=== PATIENT | female | born 1975 | race Hispanic/Latino ===

== ENCOUNTER 2019-06-23 02:07 | Inpatient (IN) | payer SELFPAY ==
[2019-06-23] MEDS ORDERED: NA CHLORIDE 0.9% 1,000 ML ONE (02:59)
[2019-06-23 03:18] LABS: Absolute Lymphocytes (CBC) 1.8 K/uL (0.7-4.9); Basophils % 0.5 % (0-1.3); Hematocrit 36.1 % (36.0-45.0); Lymphocytes % 14.4 % (15.3-44.8); MPV 8.1 fL (7.6-11.3); RBC Red Blood Cell Count 4.05 M/uL (3.86-4.86)
[2019-06-23 03:31] LABS: ALT/SGPT 23 U/L (12-78); AST/SGOT 11 U/L (15-37); Albumin 4.1 g/dL (3.4-5.0); Alkaline Phosphatase 47 U/L (45-117); BUN Blood Urea Nitrogen 11 mg/dL (7-18); Bicarbonate 28 mmol/L (21-32); Bilirubin Direct < 0.1 mg/dL (0-0.2); Bilirubin Total 0.1 mg/dL (0.2-1.0); Glucose Level 146 mg/dL (74-106); Lipase 169 U/L (73-393); Potassium 3.7 mmol/L (3.5-5.1); Protein, Total 7.4 g/dL (6.4-8.2); Sodium Level 140 mmol/L (136-145)
[2019-06-23] MEDS ORDERED: ONDANSETRON 4 MG/2 ML VIAL ONE (03:45)
[2019-06-23] MEDS ORDERED: MORPHINE 4 MG/ML SYR ONE (03:45)
[2019-06-23] MEDS ORDERED: CEFTRIAXONE 1000 MG/VIAL ONE (03:45)
[2019-06-23 04:54] LABS: Urine Culture Reflex Order NOT NEEDED
[2019-06-23 04:55] LABS: Urine Amorphous Sediment 3+ /HPF (NONE SEEN); Urine Urothelial Cells <5 /HPF (NONE SEEN)
[2019-06-23 04:56] LABS: Urine Blood TRACE (NEG); Urine Glucose NEGATIVE (NEG); Urine Protein TRACE (NEG); Urine pH >8.5 (5.0-7.0)
[2019-06-23 04:56] LABS: Urine Bacteria >50 /HPF (<20); Urine RBC <5 /HPF (NONE SEEN)
--- NOTE | 2019-06-23 06:04 | ER ---
Nurse's Notes [facility] Name: Juliane Quezada Age: 44 yrs Sex: Female : 1975 Arrival Date: 06/23/2019 Time: 02:09 Bed 18 Private MD: Diagnosis: Abdominal tenderness;Cholecystitis;Cholelithiasis Presentation: 06/23 03:09 Presenting complaint: Patient states: she is having abdominal pain which started last bb night approx 2230. Transition of care: patient was not received from another setting of care. Onset of symptoms was June 22, 2019. Risk Assessment: Do you want to hurt yourself or someone else? Patient reports no desire to harm self or others. Initial Sepsis Screen: Does the patient meet any 2 criteria? No. Patient's initial sepsis screen is negative. Does the patient have a suspected source of infection? No. Patient's initial sepsis screen is negative. Care prior to arrival: None. 03:09 Method Of Arrival: Ambulatory bb 03:09 Acuity: AISHA 3 bb PROCEDURES TECH: 03:10 LMP 06/12/2019 bb Historical: - Allergies: 03:10 No Known Allergies; bb - Home Meds: 03:10 None [Active]; bb - PMHx: 03:10 None; bb - PSHx: 03:10 Bladder suspension; bb - Immunization history:: Adult Immunizations up to date. - Social history:: Smoking status: Patient/guardian denies using tobacco. - Ebola Screening: : No symptoms or risks identified at this time. - Family history:: not pertinent. Screenin:39 Abuse screen: Denies threats or abuse. Nutritional screening: No deficits noted. lc1 Tuberculosis screening: No symptoms or risk factors identified. Fall Risk None identified. Assessment: 03:29 General: Appears distressed, uncomfortable, Behavior is calm, cooperative. Pain: lc1 Complains of pain in right upper quadrant and anterior aspect of right lateral abdomen and posterior aspect of right lateral abdomen and epigastric area Pain. 04:39 Neuro: No deficits noted. Cardiovascular: No deficits noted. Respiratory: No deficits lc1 noted. GI: Bowel sounds present X 4 quads. Abdomen is tender to palpation. : No signs and/or symptoms were reported regarding the genitourinary system. EENT: No signs and/or symptoms were reported regarding the EENT system. Derm: No signs and/or symptoms reported regarding the dermatologic system. Musculoskeletal: No signs and/or symptoms reported regarding the musculoskeletal system. 05:30 Reassessment: No changes from previously documented assessment. Patient and/or family lc1 updated on plan of care and expected duration. Pain level reassessed. Patient is alert, oriented x 3, equal unlabored respirations, skin warm/dry/pink. Patient states feeling better. 06:30 Reassessment: No changes from previously documented assessment. Patient and/or family lc1 updated on plan of care and expected duration. Pain level reassessed. Patient is alert, oriented x 3, equal unlabored respirations, skin warm/dry/pink. Patient states feeling better. 07:10 Reassessment: Patient appears in no apparent distress at this time. Patient and/or em family updated on plan of care and expected duration. Pain level reassessed. Patient is alert, oriented x 3, equal unlabored respirations, skin warm/dry/pink. Patient denies pain at this time. Patient states feeling better. 07:33 Reassessment: Patient appears in no apparent distress at this time. pt wheeled to MRI em via wheelchair. Vital Signs: 03:10 BP 123 / 71; Pulse 72; Resp 18 S; Temp 98.4(O); Pulse Ox 100% on R/A; Weight 72.57 kg bb (R); Height 5 ft. 4 in. (162.56 cm) (R); Pain 10/10; 04:00 BP 113 / 66; Pulse 70; Resp 18; Pulse Ox 99% on R/A; lc1 04:45 BP 116 / 68; Pulse 69; Resp 18; Pulse Ox 98% on R/A; lc1 05:30 BP 96 / 55; Pulse 76; Resp 18; Pulse Ox 97% on R/A; lc1 06:30 BP 107 / 68; Pulse 70; Resp 18; Pulse Ox 98% on R/A; lc1 03:10 Body Mass Index 27.46 (72.57 kg, 162.56 cm) ED Course: 02:09 Patient arrived in ED. ds1 02:42 Guido Salinas MD is Attending Physician. sheryl 02:50 Initial lab(s) drawn, by me, sent to lab. Inserted saline lock: 20 gauge in right bb antecubital area, using aseptic technique. Blood collected. 03:07 Liv Hoff is Primary Nurse. 1 03:08 Urine collected: clean catch specimen, cloudy. bb 03:09 Triage completed. bb 03:10 Arm band placed on Patient placed in an exam room, on a stretcher, on pulse oximetry. bb Family accompanied patient. 03:39 Chest Single View XRAY In Process Unspecified. EDMS 04:15 CT Abd/Pelvis - IV Contrast Only In Process Unspecified. EDMS 04:39 No apparent distress. Resting quietly. Awaiting radiology results. lc1 04:39 No provider procedures requiring assistance completed. lc1 04:39 Patient has correct armband on for positive identification. Placed in gown. Bed in low lc1 position. Call light in reach. 06:02 Dexter Casillas MD is Hospitalizing Provider. [facility] 06:30 Patient admitted, IV remains in place. lc1 Administered Medications: 03:00 Drug: NS 0.9% 1000 ml Route: IV; Rate: 1 bolus; Site: right antecubital; bb 03:52 Follow up: IV Status: Completed infusion; IV Intake: 1000ml bb 07:02 Follow up: IV Status: Completed infusion lc1 03:51 Drug: morphine 4 mg {Note: RASS 0.} Route: IVP; Site: right antecubital; bb 04:41 Follow up: Response: Pain is decreased; RASS: Alert and Calm (0) lc1 03:51 Drug: Zofran 4 mg Route: IVP; Site: right antecubital; bb 04:41 Follow up: Response: No adverse reaction 1 03:52 Drug: Rocephin 1 grams Route: IV; Rate: per protocol; Site: right antecubital; bb 07:01 Follow up: Response: No adverse reaction; IV Status: Completed infusion lc1 Intake: 03:52 IV: 1000ml; Total: 1000ml. bb Outcome: 06:03 Decision to Hospitalize by Provider. sheryl 08:25 Admitted to Med/surg accompanied by tech, family with patient, room 217, with chart, em Report called to WILLIAM Turner 08:25 Condition: good 08:25 Instructed on the need for admit, Demonstrated understanding of instructions. 08:25 Patient left the ED. em Signatures: Dispatcher [employer] Guido Becerra MD MD cha Munoz Mata, PARTS IDENTIFIER PARTS IDENTIFIER Grecia Muller ds1 Amy العلي RN RN Liv Read lc1 Corrections: (The following items were deleted from the chart) 04:39 03:29 Pain: Complains of pain in right upper quadrant and anterior aspect of right lc1 lateral abdomen and posterior aspect of right lateral abdomen and epigastric area Pain lc1
--- NOTE | 2019-06-23 06:04 | EDPHYS ---
Physician Documentation [facility] Name: Juliane Quezada Age: 44 yrs Sex: Female : 1975 Arrival Date: 06/23/2019 Time: 02:09 Bed 18 Private MD: ED Physician Guido Salinas HPI: 06/23 03:24 This 44 yrs old Female presents to ER via Ambulatory with complaints of sheryl Abdominal Pain. 03:24 The patient presents with abdominal pain in the upper abdomen, in the right upper sheryl quadrant, abdominal distention in the epigastric area. Onset: The symptoms/episode began/occurred 2 day(s) ago. The symptoms radiate to right back. Associated signs and symptoms: none. The symptoms are described as achy, crampy, dull. Modifying factors: The symptoms are alleviated by nothing. Severity of pain: At its worst the pain was moderate in the emergency department the pain is unchanged. The patient has experienced similar episodes in the past, several times. INCLUSION INTERN: 03:10 LMP 06/12/2019 bb Historical: - Allergies: 03:10 No Known Allergies; bb - Home Meds: 03:10 None [Active]; bb - PMHx: 03:10 None; bb - PSHx: 03:10 Bladder suspension; bb - Immunization history:: Adult Immunizations up to date. - Social history:: Smoking status: Patient/guardian denies using tobacco. - Ebola Screening: : No symptoms or risks identified at this time. - Family history:: not pertinent. ROS: 03:24 Constitutional: Negative for fever, chills, and weight loss, Eyes: Negative for injury, sheryl pain, redness, and discharge, ENT: Negative for injury, pain, and discharge, Neck: Negative for injury, pain, and swelling, Cardiovascular: Negative for chest pain, palpitations, and edema, Respiratory: Negative for shortness of breath, cough, wheezing, and pleuritic chest pain, : Negative for injury, bleeding, discharge, and swelling, MS/Extremity: Negative for injury and deformity, Skin: Negative for injury, rash, and discoloration, Neuro: Negative for headache, weakness, numbness, tingling, and seizure, Psych: Negative for depression, anxiety, suicide ideation, homicidal ideation, and hallucinations, Allergy/Immunology: Negative for hives, rash, and allergies, Endocrine: Negative for neck swelling, polydipsia, polyuria, polyphagia, and marked weight changes, Hematologic/Lymphatic: Negative for swollen nodes, abnormal bleeding, and unusual bruising. 03:24 Abdomen/GI: Positive for abdominal pain, nausea, vomiting, and diarrhea, nausea, vomiting, diarrhea, of the epigastric area, posterior aspect of right lateral abdomen, anterior aspect of right lateral abdomen and right upper quadrant. Exam: 03:24 Constitutional: This is a well developed, well nourished patient who is awake, alert, sheryl and in no acute distress. Head/Face: Normocephalic, atraumatic. Eyes: Pupils equal round and reactive to light, extra-ocular motions intact. Lids and lashes normal. Conjunctiva and sclera are non-icteric and not injected. Cornea within normal limits. Periorbital areas with no swelling, redness, or edema. ENT: Nares patent. No nasal discharge, no septal abnormalities noted. Tympanic membranes are normal and external auditory canals are clear. Oropharynx with no redness, swelling, or masses, exudates, or evidence of obstruction, uvula midline. Mucous membranes moist. Neck: Trachea midline, no thyromegaly or masses palpated, and no cervical lymphadenopathy. Supple, full range of motion without nuchal rigidity, or vertebral point tenderness. No Meningismus. Chest/axilla: Normal chest wall appearance and motion. Nontender with no deformity. No lesions are appreciated. Cardiovascular: Regular rate and rhythm with a normal S1 and S2. No gallops, murmurs, or rubs. Normal PMI, no JVD. No pulse deficits. Respiratory: Lungs have equal breath sounds bilaterally, clear to auscultation and percussion. No rales, rhonchi or wheezes noted. No increased work of breathing, no retractions or nasal flaring. Back: No spinal tenderness. No costovertebral tenderness. Full range of motion. 03:24 Abdomen/GI: Inspection: abdomen appears normal, Bowel sounds: normal, Palpation: mild abdominal tenderness, in the right upper quadrant. Vital Signs: 03:10 BP 123 / 71; Pulse 72; Resp 18 S; Temp 98.4(O); Pulse Ox 100% on R/A; Weight 72.57 kg bb (R); Height 5 ft. 4 in. (162.56 cm) (R); Pain 10/10; 04:00 BP 113 / 66; Pulse 70; Resp 18; Pulse Ox 99% on R/A; lc1 04:45 BP 116 / 68; Pulse 69; Resp 18; Pulse Ox 98% on R/A; lc1 05:30 BP 96 / 55; Pulse 76; Resp 18; Pulse Ox 97% on R/A; lc1 06:30 BP 107 / 68; Pulse 70; Resp 18; Pulse Ox 98% on R/A; lc1 03:10 Body Mass Index 27.46 (72.57 kg, 162.56 cm) bb MDM: 02:42 Patient medically screened. [facility] 03:27 Data reviewed: vital signs, nurses notes, lab test result(s), radiologic studies. [facility] 06/23 02:43 Order name: Basic Metabolic Panel; Complete Time: 03:55 [facility] 06/23 02:43 Order name: CBC with Diff; Complete Time: 03:22 [facility] 06/23 02:43 Order name: Creatinine for Radiology; Complete Time: 03:55 [facility] 06/23 02:43 Order name: Hepatic Function; Complete Time: 03:55 [facility] 06/23 02:43 Order name: Lipase; Complete Time: 03:55 [facility] 06/23 03:10 Order name: Urine Dipstick--Ancillary (enter results); Complete Time: 05:04 [facility] 06/23 03:10 Order name: Urine --Ancillary (enter results); Complete Time: 05:04 [facility] 06/23 03:10 Order name: Urine Culture [facility] 06/23 03:10 Order name: Urine Microscopic Only; Complete Time: 05:04 [facility] 06/23 06:29 Order name: CBC with Automated Diff [facility] 06/23 06:29 Order name: CBC with Automated Diff [facility] 06/23 06:29 Order name: Comprehensive Metabolic Panel [facility] 06/23 06:29 Order name: Comprehensive Metabolic Panel [facility] 06/23 06:29 Order name: Lipid Profile [facility] 06/23 02:43 Order name: IV Saline Lock; Complete Time: 02:54 [facility] 06/23 02:43 Order name: Labs collected and sent; Complete Time: 02:54 [facility] 06/23 02:43 Order name: Urine Dipstick-Ancillary (obtain specimen); Complete Time: 03:08 [facility] 06/23 02:43 Order name: Urine Test (obtain specimen); Complete Time: 03:08 [facility] 06/23 03:24 Order name: Chest Single View XRAY [facility] 06/23 03:24 Order name: CT Abd/Pelvis - IV Contrast Only [facility] 06/23 06:13 Order name: Cholangiogram [facility] 06/23 06:29 Order name: CONS Physician Consult [facility] 06/23 06:29 Order name: NPO [facility] 06/23 06:29 Order name: Lipid Profile [facility] 06/23 06:29 Order name: PTT, Activated Partial Thromb [facility] 06/23 06:29 Order name: PTT, Activated Partial Thromb [facility] Administered Medications: 03:00 Drug: NS 0.9% 1000 ml Route: IV; Rate: 1 bolus; Site: right antecubital; bb 03:52 Follow up: IV Status: Completed infusion; IV Intake: 1000ml bb 07:02 Follow up: IV Status: Completed infusion lc1 03:51 Drug: morphine 4 mg {Note: RASS 0.} Route: IVP; Site: right antecubital; bb 04:41 Follow up: Response: Pain is decreased; RASS: Alert and Calm (0) lc1 03:51 Drug: Zofran 4 mg Route: IVP; Site: right antecubital; bb 04:41 Follow up: Response: No adverse reaction lc1 03:52 Drug: Rocephin 1 grams Route: IV; Rate: per protocol; Site: right antecubital; bb 07:01 Follow up: Response: No adverse reaction; IV Status: Completed infusion lc1 Disposition: 06/23/19 06:03 Hospitalization ordered by Dexter Casillas for Observation. Preliminary diagnosis are Abdominal tenderness, Cholecystitis, Cholelithiasis. - Bed requested for Telemetry/MedSurg (observation). - Status is Observation. em - Condition is Stable. - Problem is new. - Symptoms have improved. UTI on Admission? No Signatures: Dispatcher [employer] EDW[place] Guido Salinas MD MD cha Munoz, Edgar, SALES AGENT SALES AGENT Amy Esteves, RN RN bb Michelle Hernandez, RN RN tl1 Liv Hoff lc1 Corrections: (The following items were deleted from the chart) 06:32 06:03 Hospitalization Ordered by Dexter Casillas MD for Observation. Preliminary tl1 diagnosis is Abdominal tenderness; Cholecystitis; Cholelithiasis. Bed requested for Telemetry/MedSurg (observation). Status is Observation. Condition is Stable. Problem is new. Symptoms have improved. UTI on Admission? No. sheryl 08:25 06:32 06/23/2019 06:03 Hospitalization Ordered by Dexter Casillas MD for Observation. em Preliminary diagnosis is Abdominal tenderness; Cholecystitis; Cholelithiasis. Bed requested for Telemetry/MedSurg (observation). Status is Observation. Condition is Stable. Problem is new. Symptoms have improved. UTI on Admission? No. tl1
[2019-06-23] MEDS ORDERED: ONDANSETRON 4 MG/2 ML VIAL IV PRN (06:24)
[2019-06-23] MEDS ORDERED: ACETAMINOPHEN 500 MG TAB PO PRN (06:24)
--- NOTE | 2019-06-23 06:34 | P.HP ---
Certification for Inpatient Patient admitted to: Inpatient With expected LOS: >2 Midnights Patient will require the following post-hospital care: None Practitioner: I am a practitioner with admitting privileges, knowledge of patient current condition, hospital course, and medical plan of care. Services: Services provided to patient in accordance with Admission requirements found in Title 42 Section 412.3 of the Code of Federal Regulations Patient History Date of Service: 06/23/19 Reason for admission: Right upper quadrant pain History of Present Illness: 44-year-old female with no significant past medical history admitted with right upper quadrant pain which started 2 days ago and has been progressively worsening . She states that the pain started 2 days ago, associated with nausea and 1 episode of vomiting. Located in the right upper quadrant with radiation to the back, not associated with any fever or chills. Denies any diarrhea. As the pain got worse last night and was brought to ER In the ER the patient was seen and examined and was found to have acute cholecystitis and was admitted for further management. Home medications list reviewed: Yes - Past Medical/Surgical History Past Medical History: Reviewed- Non-Contributory Past Surgical History: Reviewed- Non-Contributory -: Cynthia santillan - Family History Family History: Reviewed- Non-Contributory - Social History Smoking Status: Never smoker Review of Systems 10-point ROS is otherwise unremarkable Respiratory: Unremarkable Gastrointestinal: Nausea, Vomiting, Abdominal Pain Physical Examination - Vital Signs Temperature: 98.6 F Blood Pressure: 126/78 Pulse: 76 Respirations: 18 - Physical Exam General: Alert, In no apparent distress, Oriented x3 HEENT: Atraumatic, Normocephalic Neck: Supple, 2+ carotid pulse no bruit Respiratory: Clear to auscultation bilaterally, Normal air movement Cardiovascular: Normal pulses, Regular rate/rhythm Capillary refill: <2 Seconds Gastrointestinal: Non-distended, W/out hepatosplenomegaly, Tenderness (Right upper quadrant tenderness, Waggoner sign neg) Musculoskeletal: No clubbing, No swelling Integumentary: No rashes, No breakdown Neurological: Normal speech, Normal strength at 5/5 x4 extr Lymphatics: No axilla or inguinal lymphadenopathy External genitalia: Deferred Rectal: Deferred - Studies Laboratory Data (last 24 hrs) 06/23/19 02:50: Creatinine 0.86 06/23/19 02:50: WBC 12.7 H, Hgb 12.3, Hct 36.1, Plt Count 341 06/23/19 02:50: Sodium 140, Potassium 3.7, BUN 11, Creatinine 0.91, Glucose 146 H, Total Bilirubin 0.1 L, AST 11 L, ALT 23, Alkaline Phosphatase 47, Lipase 169 Assessment and Plan - Problems (Diagnosis) (1) Acute cholecystitis Current Visit: Yes Status: Acute - Plan Acute cholecystitis Plan NPO IV fluids IV antibiotics Pain control Surgical consult GI/DVT prophylaxis . - Advance Directives Does patient have a Living Will: No Does patient have a Durable POA for Healthcare: No Time Spent Managing Pts Care (In Minutes): 42
[2019-06-23] MEDS ORDERED: MORPHINE 2 MG/ML SYR IV PRN (06:36)
--- NOTE | 2019-06-23 08:23 | RAD REPORT ---
EXAM DESCRIPTION: RAD - Chest Single View - 06/23/2019 3:37 am CLINICAL HISTORY: ABDOMINAL DISTENTION Chest pain. COMPARISON: No comparisons FINDINGS: Portable technique limits examination quality. The lungs are underinflated with minimal atelectasis in the right lung base. The heart is normal in s ize. No displaced fractures. IMPRESSION: No acute intrathoracic process suspected.
[2019-06-23] MEDS: NA CHLORIDE 0.9% 1,000 ML IV SCH ×3 (08:48→21:04)
--- NOTE | 2019-06-23 09:08 | RAD REPORT ---
EXAM DESCRIPTION: MRI - Cholangiogram - 06/23/2019 7:56 am CLINICAL HISTORY: Abd pain, Cholelithiasis COMPARISON: Abdomen Pelvis W Contrast dated 06/23/2019 FINDINGS: Three-dimensional MRCP was performed using maximum intensity projection reconstruction on the same work station. No intrahepatic biliary tree dilatation is seen. The common bile duct is normal caliber without evide nce of retained stone, stricture or mass. The pancreatic duct is not pathologically dilated. Several gallstones are present in the gallbladder. There appears to be a stone in the gallbladder nec k as well with gallbladder distension. Mild fluid is seen surrounding the gallbladder. Limited T2 sequences through the abdomen demonstrates no bulky adenopathy, significant free fluid or abscess. IMPRESSION: No biliary tree dilatation is seen. Gallbladder distension with multiple stones including a gallbladder stone in the neck. Mild perichole cystic fluid also present.
--- NOTE | 2019-06-23 09:56 | RAD REPORT ---
EXAM DESCRIPTION: CT abdomen and pelvis with IV contrast CLINICAL HISTORY: 44-year-old female with abdominal pain TECHNIQUE: Axial CT imaging of the abdomen and pelvis was performed following the administration of intravenous contrast.. Sagittal and coronal reconstructed images were then performed. The CT stud y is performed according to ALARA (as low as reasonably achievable) or ALARA/IMAGE GENTLY, with autom atic adjustment of mA and/or kV according to patient size. Performed on: 06/23/2019 at 4:08 AM. COMPARISON: None FINDINGS: Lung bases: The lung bases are clear. There is minimal right basilar atelectasis and/or fi brosis. Liver: The liver is normal in size and configuration. No focal hepatic abnormalities are identified. Liver attenuation is within normal limits. Spleen: The spleen is normal is size, configuration and attenuation. Gallbladder and bile duct: The gallbladder is well distended and contains gallstones. There does ap pear to be a gallstone within the body of the gallbladder as well as in the region of the neck. The c ommon bile duct measures between seven and 8 mm in diameter which is mildly dilated. There is no defi nite choledocholithiasis. Pancreas: The pancreas is grossly normal in size and configuration. Adrenal Glands: The adrenal glands are normal in size and configuration. Kidneys: The kidneys are normal in size and configuration. There is no evidence of hydronephrosis. Th ere appears to be a nonobstructing punctate calcification in the lower pole of the right kidney and p ossibly within the midpole of the left kidney. No definite solid or cystic renal mass lesions are héctor ntified. Stomach: The stomach is grossly normal. There is no definite hiatal hernia. Bowel: The bowel gas pattern is non specific and non obstructive. There is moderate fecal residue wit hin the cecum and ascending colon. Appendix: There is no CT evidence to suggest acute appendicitis. Free air: There is no evidence of free air. Free fluid: There is no evidence of free fluid. Vasculature: The aorta is normal in caliber and contour. The inferior vena cava is grossly unremarkab le. Lymphadenopathy: No pathologic lymphadenopathy is identified. Bladder: The bladder is well distended and smooth in contour. There is a 0.9 x 0.6 x 0.5 cm calcifica tion in the left hemipelvis which appears to be within the left ureterovesical junction possibly with in a ureterocele. There is no evidence of proximal hydronephrosis or hydroureter. Reproductive: The uterus is mildly enlarged. Uterus measures approximately 12.6 x 6.4 x 9.1 cm. Bones: No acute osseous abnormalities are identified. Soft tissues: No focal soft tissue abnormalities are identified. IMPRESSION: 1. Cholelithiasis with mild biliary ductal dilatation. No definite choledocholithiasis o r pericholecystic inflammation is identified. 2. Nonobstructing punctate calcification in the lower pole of the right kidney and possibly the midpo le of the left kidney. 3. There is a 0.9 x 0.6 x 0.5 cm calcification in the left hemipelvis which appears to be within the left ureterovesical junction, possibly within a ureterocele. However, there is no evidence of proxima l hydronephrosis or hydroureter. 4. Mild enlargement of the uterus. Electronically signed by: Carolyne Bravo DO 06/23/2019 4:56 AM CHILLING HOOD OPERATOR Due to temporary technical issues with the PACS/Fluency reporting system, reports are being signed by the in house radiologist as a courtesy to ensure prompt reporting. The interpreting radiologist is f ully responsible for the content of the report.
[2019-06-23] MEDS: PIPER/TAZO/NS 3.375gm 3.375 GM/100 ML BAG IVPB SCH ×2 (10:30→16:02)
--- NOTE | 2019-06-23 11:49 | P.PN ---
Subjective Date of Service: 06/23/19 Chief Complaint: Right upper quadrant pain Subjective: No new changes, NPO, Doing well (resolved pain , MRCP today shows multiple Gallstones with one in CBD neck) Review of Systems 10-point ROS is otherwise unremarkable Physical Examination - Vital Signs Temperature: 98 F Blood Pressure: 107/57 Pulse: 75 Respirations: 20 Pulse Ox (%): 99 - Physical Exam General: Alert, In no apparent distress, Oriented x3 HEENT: Atraumatic, Normocephalic Neck: Supple, 2+ carotid pulse no bruit Respiratory: Clear to auscultation bilaterally, Normal air movement Cardiovascular: No edema, Normal pulses Gastrointestinal: Normal bowel sounds, Soft and benign Neurological: Normal gait, Normal speech, Normal strength at 5/5 x4 extr - Studies Laboratory Data (last 24 hrs) 06/23/19 02:50: Creatinine 0.86 06/23/19 02:50: WBC 12.7 H, Hgb 12.3, Hct 36.1, Plt Count 341 06/23/19 02:50: Sodium 140, Potassium 3.7, BUN 11, Creatinine 0.91, Glucose 146 H, Total Bilirubin 0.1 L, AST 11 L, ALT 23, Alkaline Phosphatase 47, Lipase 169 Assessment & Plan - Problems (Diagnosis) (1) Acute cholecystitis Current Visit: Yes Status: Acute Discharge Plan: Home Plan to discharge in: 24 Hours Physician Review: Patient Assessed, Agree with Above Assessment and Plan Physician Review Additional Text: -Acute cholecystitis - continue IVF -follow surgery for plan for possible lap chol
--- NOTE | 2019-06-23 17:36 | P.PN ---
Date of Service: 06/23/19 PC: This 44-year-old female presents emergency room with severe right upper quadrant abdominal pain for diagnosis and treatment. HPC: Patient last night, ate some chips and salsa. Around 1 o'clock in the morning developed severe unrelenting right upper quadrant abdominal pain going straight to her back. Had nausea and vomiting associated with it. Was brought to the emergency room for evaluation PMH: Has had 2 previous episodes like this in the past. 4 para 4 PSHx: Negative SOC: No known allergies SYS REVIEW: Otherwise healthy female. No cough, wheeze, shortness of breath. Denies any urinary complaints. O/E awake alert comfortable at the moment HEENT: Not clinically jaundiced Chest: Air entry equal bilaterally ABD: Tender in the right upper quadrant LOCO: Intact DATA: White cell count 12,000, has acute on chronic cholecystitis with cholelithiasis. MRCP was performed no evidence of any choledocholithiasis IMPRESSION: Acute on chronic cholecystitis with cholelithiasis, biliary colic PLAN: I have discussed with her has been her surgical options. She would like to go to the operating room in the morning for laparoscopic cholecystectomy with a cholangiogram. The risks of this procedure have been discussed. The possibility of bleeding, infection, injury to bile ducts blood vessels and intestines has been described. The possible need for an open and/or further surgeries and procedures was discussed. She understands and wants us to proceed.
[2019-06-23] MEDS ORDERED: POTASSIUM CL SA 10 MEQ TAB PO ONE (21:00)
[2019-06-24] MEDS: PIPER/TAZO/NS 3.375gm 3.375 GM/100 ML BAG IVPB SCH ×2 (01:00→09:00)
[2019-06-24] MEDS: NA CHLORIDE 0.9% 1,000 ML IV SCH ×2 (03:00→13:00)
[2019-06-24 04:57] LABS: Absolute Lymphocytes (CBC) 3.1 K/uL (0.7-4.9); Basophils % 0.5 % (0-1.3); Hematocrit 34.1 % (36.0-45.0); Lymphocytes % 35.6 % (15.3-44.8); RBC Red Blood Cell Count 3.72 M/uL (3.86-4.86)
[2019-06-24 05:26] LABS: Albumin 3.2 g/dL (3.4-5.0); Bilirubin Total 0.4 mg/dL (0.2-1.0); Potassium 3.8 mmol/L (3.5-5.1); Protein, Total 6.1 g/dL (6.4-8.2)
[2019-06-24] MEDS ORDERED: KCL 20 MEQ/100 mL IVPB 20 MEQ/100 ML BAG IV SCH (08:00)
--- NOTE | 2019-06-24 11:10 | P.PN ---
Subjective Date of Service: 06/24/19 Chief Complaint: Right upper quadrant pain Subjective: No new changes, Doing well ([facility] for lap deepak this am) Review of Systems 10-point ROS is otherwise unremarkable Physical Examination - Vital Signs Temperature: 97.9 F Blood Pressure: 114/56 Pulse: 67 Respirations: 16 Pulse Ox (%): 99 - Physical Exam General: Alert, In no apparent distress HEENT: Atraumatic, Normocephalic, PERRLA Neck: Supple, 2+ carotid pulse no bruit Respiratory: Clear to auscultation bilaterally, Normal air movement Cardiovascular: No edema, Normal pulses Gastrointestinal: Normal bowel sounds, Soft and benign Musculoskeletal: No clubbing, No swelling Neurological: Normal gait, Normal speech External genitalia: No edema, No lesions Rectal: Normal, Average - Studies Medications List Reviewed: Yes Assessment & Plan - Problems (Diagnosis) (1) Acute cholecystitis Current Visit: Yes Status: Acute Discharge Plan: Home Physician Review: Patient Assessed, Agree with Above Assessment and Plan Physician Review Additional Text: -Acute cholecystitis - follow surgery - nothing to add from medical viewpoint
[2019-06-24] MEDS ORDERED: Ringers Lactate 1,000 ML IV ONE (14:04)
[2019-06-24] MEDS ORDERED: ROCURONIUM 50 MG/5 ML VIAL IV ONE (14:10)
[2019-06-24] MEDS ORDERED: FENTANYL CITR 100 MCG/2 ML ONE (14:10)
[2019-06-24] MEDS ORDERED: LIDOCAINE 2% MPF 5 ML VIAL ONE (14:10)
[2019-06-24] MEDS ORDERED: propofoL 200 MG/20 ML VIAL IV ONE (14:10)
[2019-06-24] MEDS ORDERED: KETOROLAC 30 MG/ML INJ ONE (14:23)
[2019-06-24] MEDS ORDERED: dexAMETHasone 10 MG/ML VIAL ONE (14:23)
[2019-06-24] MEDS ORDERED: ONDANSETRON 4 MG/2 ML VIAL ONE ×2 (14:24→15:21)
[2019-06-24] MEDS ORDERED: GLYCOPYRROLATE 0.2 MG/ML SYR ONE (14:39)
[2019-06-24] MEDS ORDERED: NEOSTIGMINE 1 MG/ML -10 ML VIAL ONE (14:40)
[2019-06-24] MEDS: HYDROMORPHONE HCL 1 MG/ML INJ ONE ×2 (15:21→15:33)
[2019-06-24 15:33] VITALS: O2SAT 96
[2019-06-24] MEDS ORDERED: MORPHINE 4 MG/ML SYR IV PRN ×2 (15:40→15:54)
[2019-06-24] MEDS ORDERED: HYDROCODONE/APAP 7.5/325 MG TAB PO PRN (15:40)
--- NOTE | 2019-06-24 16:02 | RAD REPORT ---
EXAM DESCRIPTION: RADCholangiogram Oper-Xray Or06/24/2019 3:34 pm CLINICAL HISTORY: Abdominal pain FINDINGS: The examination was performed by Dr. Rojas. The cystic duct was cannulated and contrast administered. Fluoroscopy time 0.1 minute. Five fluoroscopic intraoperative spot images obtained Contrast flowed into the duodenum. No filling defect within the biliary tree noted. The distal common bile duct is narrowed.
[2019-06-24 17:05] VITALS: BP 109/64; TEMP 97.7
--- NOTE | 2019-07-27 18:35 | P.OP ---
Preoperative diagnosis: Cholecystitis with cholelithiasis Postoperative diagnosis: The same Primary procedure: Laparoscopic cholecystectomy Secondary procedure: Cholangiogram Anesthesia: General Estimated blood loss: Than 10 cc Specimen: 1 gallbladder Operative Technique: The patient was brought to the operating room placed supine on the table. After the induction of adequate general endotracheal anesthesia, the area of the abdomen is prepped with a DuraPrep solution, and draped in the usual aseptic manner. A subumbilical incision was made. This brought down through the skin and subcutaneous tissue. The Visiport was used to enter the peritoneal cavity and created pneumoperitoneum to approximately 12 mm of mercury. Under direct vision a 5 mm trocar was placed in the upper midline, and 2 other 5 mm trocars on the right lateral side. The patient's head was then elevated and rolled towards the instant printer operator's side. We could see a distended a mildly inflamed gallbladder. A grasper was placed on the fundus of the gallbladder. Another 1 was placed down by Raymundo's pouch. Applying lateral traction we were able to dissect and expose the cystic duct and artery. The artery was dealt with 1st. It was clipped and divided in the usual manner. A clip was then placed between the gallbladder and the cystic duct. An opening was made into the cystic duct. We attempted then to pass the cholangiocath into the cystic duct. On injection , we could see the contrast in the extrahepatic biliary tree. It went into the duodenum. There was no evidence of filling defects. There is mild taper to the common bile ducts however no stones were seen. Clips were now placed on the distal portion of the cystic duct. The cystic duct was then divided. The gallbladder was now dissected free from the liver bed, placed into an Endo-Catch , and brought out through the umbilical trocar site. The gallbladder fossa was inspected to ensure adequate hemostasis. It was irrigated with a saline solution and the irrigant aspirated from the peritoneal cavity. 0.25% Marcaine was aerosolized into the right upper quadrant and the gallbladder fossa. The umbilical trocar site was now approximated with an Endo Close and an absorbable sutures. The pneumoperitoneum was then collapsed, the suture tied, and leonila applied to the skin. A further 0.25% Marcaine was injected around are incision sites. At the end of the procedure the patient was in a stable condition when sent to the recovery room. Needle sponge instrument count were correct. 1 specimen was sent for histopathology. Complications: None Transferred to: Recovery Room Condition: Good
== END 2019-06-24 18:41 | disposition home health service (06) | DRG 418 ==
LOC: ER 02:07 → ERHOLD 06:35 → 2ND 08:17
PROVIDERS: ADMIT Family Medicine; ATTEND Internal Medicine
PROC: BF03YZZ Plain Radiography of Gallbladder and Bile Ducts using Other Contrast (ICD-10-PCS; 2019-06-23)
PROC: BF13YZZ Fluoroscopy of Gallbladder and Bile Ducts using Other Contrast (ICD-10-PCS; 2019-06-24)
PROC: 0FT44ZZ Resection of Gallbladder, Percutaneous Endoscopic Approach (ICD-10-PCS; principal; 2019-06-24 12:45)
DX: K80.00 Calculus of gallbladder with acute cholecystitis without obstruction (principal); N39.0 Urinary tract infection, site not specified
CPT/HCPCS: 36415; 71045; 74177; 74181; 74300; 80048; 80053; 80061; 80076; 81003; 81015; 81025; 83690; 85025; 85730; 87077; 87086; 87088; 87186; 88304; 96361; 96365; 96366; 96375; 99285; J1100; J1170; J2405; J2543; J2704; J2710; J3010; J7030; J7120; Q9967